=== PATIENT | female | born 1990 | race Caucasian/White ===

== ENCOUNTER → 2018-03-14 | Outpatient (CLI) | payer OTHER | END | disposition home or self-care (01) | LOC: SPEC 16:53 | DX: Z01.419 Encounter for gynecological examination (general) (routine) without abnormal findings (principal) | CPT/HCPCS: 88175 ==

== ENCOUNTER → 2018-08-07 | Outpatient (CLI) | payer OTHER ==
[~2018-08-07] MED LIST: PNV1TABL25 PO
--- NOTE | 2018-08-07 17:37 | RAD ---
Examination: PREG MORE THAN OR EQ TO 14 WKS History: Uterine size and date discrepancy

IMP: Live IUP Comparison/Correlation: None Findings: Single living intrauterine gestation is present with heart rate of 158 bpm. Placenta is at the anterior wall. Breech lie noted. anatomy identified includes: Bladder, spine, bilateral lateral ventricles, stomach, heart, aorta, three-vessel cord insertion, bilateral kidneys, diaphragm, cerebellum, cisterna magna, bilateral upper extremities, and bilateral lower extremities. breathing is not identified. Cervical length is 5.8 cm. measurements include: Biparietal diameter: 4.16 cm corresponding to 18 weeks 4 days. Femur length of 2.8 cm corresponding to 18 weeks 4 days. Head circumference of 15.4 cm corresponding to 18 weeks 3 days. Abdominal circumference of 13.4 cm corresponding to 18 weeks 6 days. Age by 4 parameters corresponds to 18 weeks 4 days. EDC by average age is 01/04/2019. Gestational age by last menstrual period is 18 weeks 4 days. Cephalic index of 80.7. H/A ratio is 1.15. FL/BPD is 67.3. FL/ AC is 20.8. Amniotic fluid index is 12.2 and within normal limits. IMPRESSION: Single living breech intrauterine gestation is present with average ultrasound age of 18 weeks 4 days matching the age by last menstrual period. Electronically signed by: Eusebio Jones MD (08/07/2018 5:35 PM) [facility]
== END | disposition home or self-care (01) ==
LOC: US 08:27
PROVIDERS: ATTEND Obstetrics & Gynecology
DX: O26.842 Uterine size-date discrepancy, second trimester (principal); Z3A.18 18 weeks gestation of pregnancy
CPT/HCPCS: 76805

== ENCOUNTER → 2018-09-19 | Outpatient (CLI) | payer OTHER ==
[2018-09-19 10:39] LABS: BASO # 0.1 x10^3/uL (0.0-0.2); BASO % 1 % (0-3); EOS # 0.1 x10^3/uL (0.0-0.7); EOS % 1 % (0-3); LYMPH % 20 % (24-48); MEAN CORPUSCULAR HEMOGLOBIN 30 pg (25-35); MEAN CORPUSCULAR HGB CONC 35 g/dL (31-37); MEAN CORPUSCULAR VOLUME 86 fL (79-100); MONO # 0.4 x10^3/uL (0.0-1.1); MONO % 4 % (0-9); NEUT # 7.7 x10^3uL (1.8-7.7); NEUT % 75 % (31-73); PLATELET COUNT 239 x10^3/uL (140-400); RED BLOOD COUNT 3.72 x10^6/uL (3.50-5.40); RED CELL DISTRIBUTION WIDTH 14.1 % (11.5-14.5); WHITE BLOOD COUNT 10.3 x10^3/uL (4.0-11.0)
[2018-09-19 15:05] VITALS: BP 103/64
== END | disposition home or self-care (01) ==
LOC: LAB 09:21
PROVIDERS: ATTEND Obstetrics & Gynecology
DX: O26.892 Other specified pregnancy related conditions, second trimester (principal); Z3A.24 24 weeks gestation of pregnancy; Z67.91 Unspecified blood type, Rh negative
CPT/HCPCS: 36415; 82950; 85025; 86850; 86900; 86901; 96372; J2791

== ENCOUNTER 2018-12-31 20:22 | Inpatient (IN) | payer OTHER ==
[~2018-12-31] VITALS: Ht 154.9 cm; Wt 64.0 kg
[2018-12-31] MEDS ORDERED: IBUPROFEN 400 MG TABLET. PO PRN (20:45)
[2018-12-31] MEDS ORDERED: DINOPROSTONE 10 MG SUPP.VAG VG ONE (20:45)
[2018-12-31] MEDS ORDERED: 0.9 % SODIUM CHLORIDE 10 ML DISP.SYRIN. IV PRN (20:45)
[2018-12-31] MEDS ORDERED: ACETAMINOPHEN 325 MG TABLET. PO PRN (20:45)
[2018-12-31] MEDS ORDERED: ONDANSETRON PF 4 MG/2 ML VIAL. IV PRN (20:45)
[2018-12-31] MEDS ORDERED: MAG HYDROX/ALUMINUM HYD/SIMETH 30 ML ORAL.SUSP PO PRN (20:45)
[2018-12-31] MEDS ORDERED: TERBUTALINE 1 MG/ML VIAL. SQ PRN (20:45)
[2018-12-31] MEDS ORDERED: NALBUPHINE 10 MG/ML AMPUL. IV PRN (20:45)
[2018-12-31] MEDS ORDERED: fentaNYL PF VIAL 100 MCG/2 ML VIAL IV PRN ×3 (20:45)
[2018-12-31] MEDS ORDERED: LIDOCAINE 1% PF 30 ML VIAL. INJ PRN (20:45)
[2018-12-31] MEDS ORDERED: OXYTOCIN 30 UNIT/500 ML PREMIX 500 ML IV PRN ×2 (20:45)
--- NOTE | 2018-12-31 20:45 | PDOC1 ---
OB - History Hx of Present Care: Good Care Ultrasounds: Normal mid trimester US Obstetrical Complications: None Medical Complications: None Past Family/Social History * Past Medical, Surgical, Family and Obstetric Histories reviewed from chart. Rubella: Immune RPR/VDRL: Negative GBS Status: Negative HBsAG: Negative OB - Chief Complaint & HPI Date of Admission: Date of Admission: Dec 31, 2018 at 20:22 Chief Complaint/History : 2 Para: 1 EGA: 39 Reason for admission: induction of labor Indication for induction: maternal discomfort, maternal distance Admission Nurse Assessment Rev: Yes OB - Admission Exam Physical Exam HEENT: Normal Heart: Regular Rate Lungs: Clear Abdomen: Gravid, Non tender, Soft Extremities: Edema Reflexes: Normal Cervical Dilatation: 2cm Effacement: 75% Station: -3 Membranes: Intact Heart Rate: Normal Accelerations: Accelerations Present Decelerations: No decelerations Contractions on Admission: >10 Minutes Apart Intensity: Mild Text A: 39 wks IUP IOL secondary to discomforts of and distance from hospital P: Admit for cervidil induction, then pitocin in am. KATHIA MACHADO Jr, MD Dec 31, 2018 20:45
[2018-12-31 21:09] LABS: BASO # 0.1 x10^3/uL (0.0-0.2); BASO % 1 % (0-3); EOS # 0.3 x10^3/uL (0.0-0.7); EOS % 2 % (0-3); HEMATOCRIT 33.4 % (36.0-47.0); HEMOGLOBIN 11.6 g/dL (12.0-15.5); LYMPH # 2.8 x10^3/uL (1.0-4.8); LYMPH % 21 % (24-48); MEAN CORPUSCULAR HEMOGLOBIN 29 pg (25-35); MEAN CORPUSCULAR HGB CONC 35 g/dL (31-37); MEAN CORPUSCULAR VOLUME 83 fL (79-100); MONO # 0.9 x10^3/uL (0.0-1.1); MONO % 6 % (0-9); NEUT # 9.5 x10^3/uL (1.8-7.7); NEUT % 70 % (31-73); PLATELET COUNT 191 x10^3/uL (140-400); RED BLOOD COUNT 4.02 x10^6/uL (3.50-5.40); RED CELL DISTRIBUTION WIDTH 16.7 % (11.5-14.5); WHITE BLOOD COUNT 13.5 x10^3/uL (4.0-11.0)
[2018-12-31 21:12] LABS: BILIRUBIN,URINE NEGATIVE (NEG); CLARITY,URINE CLEAR; COLOR,URINE YELLOW; NITRITE,URINE NEGATIVE (NEG); PROTEIN,URINE NEGATIVE (NEG-TRACE); UROBILINOGEN,URINE 0.2 mg/dL (0.2 mg/dL)
[2018-12-31] MEDS: IV RINGERS,LACTATED 1000ML 1,000 ML IV SCH (21:35)
[2018-12-31 21:56] VITALS: BP 122/75
[2019-01-01] MEDS ORDERED: IV RINGERS,LACTATED 1000ML 1,000 ML IV SCH (00:54)
[2019-01-01] MEDS ORDERED: PROCHLORPERAZINE 10 MG/2 ML VIAL. IV PRN (01:00)
[2019-01-01] MEDS ORDERED: L&D EPIDURAL SYRINGE 50 ML EPID PRN (01:00)
[2019-01-01] MEDS ORDERED: ONDANSETRON PF 4 MG/2 ML VIAL. IV PRN (01:00)
[2019-01-01] MEDS ORDERED: BUPIVACAINE MPF 0.25% 30 ML VIAL. EPID PRN (01:00)
[2019-01-01] MEDS ORDERED: diphenhydrAMINE 50 MG/ML VIAL IV PRN (01:00)
[2019-01-01] MEDS ORDERED: OXYTOCIN PREMIX 30 UNIT/500 ML NS BAG. IV ONE (01:00)
[2019-01-01] MEDS ORDERED: IV RINGERS,LACTATED 500ML 500 ML IV PRN (01:00)
[2019-01-01] MEDS ORDERED: ATROPINE 0.5 MG/5 ML DISP.SYRINGE. IV PRN (01:00)
[2019-01-01] MEDS ORDERED: ePHEDrine PF IN SALINE 50 MG/10 ML SYRINGE. IV PRN (01:00)
[2019-01-01] MEDS ORDERED: NALBUPHINE 10 MG/ML AMPUL. IV PRN (01:00)
[2019-01-01] MEDS ORDERED: ROPIVacaine 0.2% IN 0.9%NACL PF 40 MG/20 ML DISP.SYRIN. EPID PRN (01:00)
[2019-01-01] MEDS ORDERED: PHENYLEPHRINE in 0.9% NACL PF 1 MG/10 ML SYRINGE. IV PRN (01:00)
[2019-01-01] MEDS ORDERED: fentaNYL PF VIAL 100 MCG/2 ML VIAL IV PRN (01:00)
[2019-01-01] MEDS ORDERED: NALOXONE 0.4 MG/ML VIAL. IV PRN (01:00)
[2019-01-01] MEDS ORDERED: miSOPROStol 200 MCG TABLET ONE ×2 (07:00→07:03)
[2019-01-01] MEDS: IV RINGERS,LACTATED 1000ML 1,000 ML IV SCH (07:40)
--- NOTE | 2019-01-01 08:42 | PDOC ---
VAGINAL DELIVERY DATE DATE: 01/01/19 TIME: 08:40 : 2 Para: 2 EGA: 39 VAGINAL DELIVERY: VTX VACCUM ASSISTED: No PLACENTA: Spontaneous 8/9 SEX: Male WEIGHT Weight [ 3535 gm] Nuchal Cord: Yes, Times 1 Amniotic Fluid: Clear PAIN: Epidural EPISIOTOMY: No EXTENSION: Yes (2nd degree midline laceration) REPAIRED WITH 2-0 vicryl EBL 300 ml COMPLICATIONS none CONDITION pt. stable Signs of Intrauterine Infectio: None Shoulder Dystocia: No KATHIA MACHADO Jr, MD Jan 01, 2019 08:41
[2019-01-01] MEDS ORDERED: OXYTOCIN 30 UNIT/500 ML PREMIX 500 ML IV PRN (08:45)
[2019-01-01] MEDS ORDERED: ZOLPIDEM 5 MG TABLET. PO PRN (08:45)
[2019-01-01] MEDS ORDERED: 0.9 % SODIUM CHLORIDE 10 ML DISP.SYRIN. IV PRN (08:45)
[2019-01-01] MEDS ORDERED: HYDROCORTISONE 1% TOPICAL OINTMENT 30GM TUBE. TP PRN (08:45)
[2019-01-01] MEDS ORDERED: MAG HYDROX/ALUMINUM HYD/SIMETH 30 ML ORAL.SUSP PO PRN (08:45)
[2019-01-01] MEDS ORDERED: PHENYLEPH/MINERAL OIL/PETROLAT RECTAL OINTMENT TUBE. RC PRN (08:45)
[2019-01-01] MEDS ORDERED: diphenhydrAMINE HCL 25 MG CAPSULE PO PRN (08:45)
[2019-01-01] MEDS ORDERED: BENZOCAINE 20% TOPICAL AEROSOL SPRAY 57GM CAN. TP PRN (08:45)
[2019-01-01] MEDS ORDERED: oxyCODONE/APAP 5/325 1 TAB TABLET PO PRN (08:45)
[2019-01-01] MEDS ORDERED: ACETAMINOPHEN 325 MG TABLET. PO PRN (08:45)
[2019-01-01] MEDS ORDERED: DOCUSATE SODIUM 100 MG CAPSULE. PO PRN (08:45)
[2019-01-01] MEDS ORDERED: MMR per PROTOCOL. MC PRN (08:45)
[2019-01-01] MEDS ORDERED: MAGNESIUM HYDROXIDE 2,400 MG/30 ML ORAL.SUSP. PO PRN (08:45)
[2019-01-01] MEDS ORDERED: SIMETHICONE 80 MG TAB.CHEW PO PRN (08:45)
[2019-01-01] MEDS ORDERED: DIPHENHYDRAMINE/ZINC ACETATE 2%/0.1% TOPICAL CREAM 28GM TUBE. TP PRN (09:00)
[2019-01-01 13:45] VITALS: BP 111/77
[2019-01-01 14:45] VITALS: BP 113/72
[2019-01-01 16:57] VITALS: BP 110/71
[2019-01-01 21:22] VITALS: BP 110/73
[2019-01-01] MEDS: IBUPROFEN 400 MG TABLET. PO PRN (21:24)
[2019-01-02 03:05] VITALS: BP 102/60
[2019-01-02 06:30] VITALS: BP 95/57
[2019-01-02] MEDS: IBUPROFEN 400 MG TABLET. PO PRN (06:39)
[2019-01-02] MEDS ORDERED: FERROUS SULFATE 325 MG TABLET. PO SCH (08:00)
[2019-01-02 08:20] LABS: BASO # 0.1 x10^3/uL (0.0-0.2); BASO % 1 % (0-3); EOS # 0.4 x10^3/uL (0.0-0.7); EOS % 3 % (0-3); HEMATOCRIT 29.6 % (36.0-47.0); HEMOGLOBIN 10.2 g/dL (12.0-15.5); LYMPH # 3.4 x10^3/uL (1.0-4.8); LYMPH % 27 % (24-48); MEAN CORPUSCULAR HEMOGLOBIN 29 pg (25-35); MEAN CORPUSCULAR HGB CONC 34 g/dL (31-37); MEAN CORPUSCULAR VOLUME 84 fL (79-100); MONO # 0.6 x10^3/uL (0.0-1.1); MONO % 4 % (0-9); NEUT # 8.3 x10^3/uL (1.8-7.7); NEUT % 65 % (31-73); PLATELET COUNT 160 x10^3/uL (140-400); RED BLOOD COUNT 3.52 x10^6/uL (3.50-5.40); RED CELL DISTRIBUTION WIDTH 16.9 % (11.5-14.5); WHITE BLOOD COUNT 12.7 x10^3/uL (4.0-11.0)
--- NOTE | 2019-01-02 09:08 | PDOC3 ---
OB DISCHARGE SUMMARY DATE OF ADMISSION: 12/31/18 DATE OF DISCHARGE: 01/02/19 REASON FOR ADMISSION: Induction of labor INTRAPARTUM PROCEDURES: Spontanous Vag Deliv DISCHARGE DIAGNOSIS: Term Delivered DISCHARGE INFORMATION: Activity (ad lakshmi), Diet (regular ), Instructions (pelvic rest x 6 wks) HOSPITAL COURSE Term gestation delivered vaginally without complications. KATHIA MACHADO Jr, MD Jan 02, 2019 09:08
[2019-01-02] MEDS ORDERED: IBUP-1027 PO (09:09)
--- NOTE | 2019-01-02 09:10 | DISCH ---
DISCHARGE INSTRUCTIONS Condition on Discharge Condition on Discharge: Stable Activity After Discharge Activity Instructions for Disc: Activity as tolerated Lifting Instructions after Dis: No heavy lifting Driving Instructions after Dis: Do not drive today Diet after Discharge Diet after Discharge: Regular Contacting the [facility] after DC Call your doctor for: Concerns you may have Follow-Up Follow up with: Dr. Schrader in 6 wks. KATHIA SCHRADER Jr, MD Jan 02, 2019 09:10
[2019-01-02 11:00] VITALS: BP 103/71
[2019-01-02 13:11] VITALS: BP 114/73
--- NOTE | 2019-01-02 13:18 | NUR ---
Discharge Note: Pt. VSS, denies needs at this time. NB in car seat. Pt., NB, and family escorted to vehicle by Reid Crooks RN with belongings present. Pt. discharged home. Reid Blackburn RN
== END 2019-01-02 13:18 | disposition home or self-care (01) | DRG 807 ==
LOC: 3 SO LND 20:22 → 3 NORTH 01-01 11:10
PROVIDERS: ADMIT Obstetrics & Gynecology; ATTEND Obstetrics & Gynecology
PROC: 0KQM0ZZ Repair Perineum Muscle, Open Approach (ICD-10-PCS; principal; 2019-01-01)
PROC: 10E0XZZ Delivery of Products of Conception, External Approach (ICD-10-PCS; 2019-01-01)
PROC: 3E0R3BZ Introduction of Anesthetic Agent into Spinal Canal, Percutaneous Approach (ICD-10-PCS; 2019-01-01)
PROC: 00HU33Z Insertion of Infusion Device into Spinal Canal, Percutaneous Approach (ICD-10-PCS; 2019-01-01)
DX: O69.81X0 Labor and delivery complicated by cord around neck, without compression, not applicable or unspecified (principal); Z37.0 Single live birth; O70.1 Second degree perineal laceration during delivery; Z3A.39 39 weeks gestation of pregnancy
CPT/HCPCS: 36415; 81003; 85025; 86592; 86850; 86900; 86901; 87340; J2300; J2405; J2590; J3490; J7120; G0378

== ENCOUNTER → 2020-07-27 | Outpatient (CLI) | payer OTHER ==
[~2020-07-27] MED LIST changes: +IBUP-1027 PO
--- NOTE | 2020-07-28 09:54 | RAD ---
EXAM: OB ULTRASOUND, > 14 WEEKS HISTORY: Size and dates discrepancy. COMPARISON: None. TECHNIQUE: Multiple grayscale images, color Doppler, and M-mode images of the uterus are obtained. FINDINGS: There is a single intrauterine gestation in breech presentation. The placenta is anterior in location without evidence of placenta previa. The amount of amniotic fluid appears appropriate. Amniotic flu id index is 12.7 cm. Cervical length is 5.1 cm. Biometrical data: BPD = 4.3 cm for 19 weeks 0 days. HC = 15.39 cm for 18 weeks 3 days. AC = 12.85 cm for 18 weeks 3 days. FL = 2.82 cm for 18 weeks 4 days. HC/AC ratio = 1.2. Overall, the estimated sonographic gestational age is 18 weeks and 4 days for an estimated date of de livery of 12/24/2020. The estimated date of delivery provided by the last menstrual period is . Estimated weight is 244 grams. A 4 chamber heart is identified with positive cardiac activity. The estimated heart rate is 04/29 beats per minute. Bilateral upper and lower extremities are identified. There is a three-vessel cord with cord insertion visualized. stomach and urinary bladder are identified. Both kidneys are seen. The spine and brain are unremarkable. No obvious anatomic abnormalities are identified. The maternal adnexal regions are unremarkable. IMPRESSION: 1. Single intrauterine fetus in breech presentation with a normal heart rate and gestational age base d on ultrasound measurements of 18 weeks and 4 days. The estimated gestational age based on LMP is 18 weeks and 2 days. 2. Unremarkable anatomy survey. Electronically signed by: Tiffani Romero MD (07/28/2020 9:52 AM) [id number]
== END ==
LOC: US 13:22
PROVIDERS: ATTEND Obstetrics & Gynecology
DX: O26.842 Uterine size-date discrepancy, second trimester (principal); Z3A.18 18 weeks gestation of pregnancy
CPT/HCPCS: 76805

== ENCOUNTER → 2020-10-19 | Outpatient (CLI) | payer OTHER | LOC: LAB 14:37 | PROVIDERS: ATTEND Obstetrics & Gynecology | DX: O26.892 Other specified pregnancy related conditions, second trimester (principal); Z67.41 Type O blood, Rh negative; Z3A.26 26 weeks gestation of pregnancy | CPT/HCPCS: 36415; 86850; 86900; 86901; 96372; J2790 ==